=== PATIENT | female | born 1960 | race Caucasian/White ===

== ENCOUNTER 2023-06-26 18:43 | Outpatient (RCR) | payer BC, SELFPAY | END 2023-06-26 23:59 | disposition home or self-care (01) | LOC: RPT 18:43 | PROVIDERS: ATTENDING PHYSICIAN Urology; PRIMARYCARE PHYSICIAN Nurse Practitioner Family | DX: R39.15 Urgency of urination (principal); M62.89 Other specified disorders of muscle; N39.41 Urge incontinence; N39.3 Stress incontinence (female) (male); R35.0 Frequency of micturition; R39.82 Chronic bladder pain; Z73.6 Limitation of activities due to disability | CPT/HCPCS: 97110; 97112; 97140; 97163; 97530 ==

== ENCOUNTER 2023-08-02 15:10 | Outpatient (RCR) | payer BC, SELFPAY | END 2023-08-02 23:59 | disposition home or self-care (01) | LOC: RPT 15:10 | PROVIDERS: ATTENDING PHYSICIAN Urology; PRIMARYCARE PHYSICIAN Nurse Practitioner Family | DX: R39.15 Urgency of urination (principal); M62.89 Other specified disorders of muscle; N39.41 Urge incontinence; N39.3 Stress incontinence (female) (male); R35.0 Frequency of micturition; R39.82 Chronic bladder pain | CPT/HCPCS: 97110; 97112; 97140; 97530 ==

== ENCOUNTER → 2023-08-23 13:39 | Outpatient (REF) | payer BC, SELFPAY | LOC: WDC 13:39 | PROVIDERS: ATTENDING PHYSICIAN Internal Medicine Hematology & Oncology; FAMILY PHYSICIAN Family Medicine | DX: Z12.31 Encounter for screening mammogram for malignant neoplasm of breast (principal) | CPT/HCPCS: 77063; 77067 ==

== ENCOUNTER 2023-08-23 14:25 | Outpatient (RCR) | payer BC, SELFPAY | END 2023-08-23 23:59 | disposition home or self-care (01) | LOC: RPT 14:25 | PROVIDERS: ATTENDING PHYSICIAN Urology; PRIMARYCARE PHYSICIAN Nurse Practitioner Family | DX: M62.89 Other specified disorders of muscle (principal); N39.41 Urge incontinence; N39.3 Stress incontinence (female) (male); R35.0 Frequency of micturition; R39.82 Chronic bladder pain; Z73.6 Limitation of activities due to disability | CPT/HCPCS: 97110; 97112; 97140; 97530 ==

== ENCOUNTER → 2023-10-02 14:58 | Outpatient (REF) | payer BC, SELFPAY | LOC: HWEVLT 14:58 | PROVIDERS: ATTENDING PHYSICIAN Radiology Vascular & Interventional Radiology | DX: I83.893 Varicose veins of bilateral lower extremities with other complications (principal) | CPT/HCPCS: 93970 ==

== ENCOUNTER → 2024-10-14 11:15 | Outpatient (REF) | payer BC, SELFPAY | LOC: HWWDC 11:15 | PROVIDERS: ATTENDING PHYSICIAN Internal Medicine Hematology & Oncology; FAMILY PHYSICIAN Family Medicine | DX: Z12.31 Encounter for screening mammogram for malignant neoplasm of breast (principal) | CPT/HCPCS: 77063; 77067 ==

== ENCOUNTER → 2024-10-20 11:36 | Outpatient (REF) | payer BC, SELFPAY | LOC: RAD 11:36 | PROVIDERS: ATTENDING PHYSICIAN Family Medicine | DX: R14.0 Abdominal distension (gaseous) (principal); R10.30 Lower abdominal pain, unspecified | CPT/HCPCS: 74177; Q9967 ==

== ENCOUNTER → 2025-06-15 22:00 | Outpatient (REF) | payer BC, SELFPAY | LOC: DHSLP 22:00 | PROVIDERS: ATTENDING PHYSICIAN Family Medicine | DX: G47.33 Obstructive sleep apnea (adult) (pediatric) (principal) | CPT/HCPCS: 95800 ==